=== PATIENT | female | born 1980 | race Caucasian/White ===

== ENCOUNTER 2024-08-17 22:39 | Emergency (ER) | payer SELFPAY ==
[~2024-08-17] VITALS: Ht 165.1 cm; Wt 70.0 kg
[2024-08-17 22:44] VITALS: O2SAT 99
[2024-08-17 23:34] LABS: BASOPHILS % 0.8 % (0.0-2.0); EOSINOPHILS % 1.3 % (0.0-5.0); HEMATOCRIT. 21.1 % (36.0-48.0); MEAN CORPUSCULAR HGB CONC 28.1 g/dL (31.0-37.0); MEAN CORPUSCULAR VOLUME 53.4 fL (81.0-99.0); MEAN PLATELET VOLUME 8.6 fl (7.4-10.4); MONOCYTES % 8.6 % (2.0-8.0); NEUTROPHILS % 68.3 % (40.0-76.0); PLATELET 376 x1000/uL (130-400); RED BLOOD CELL COUNT 3.94 mill/uL (4.2-5.4); RED CELL DISTRIBUTION WIDTH 21.3 % (11.6-14.6); WHITE BLOOD COUNT 6.1 x1000/uL (4.5-11.0)
[2024-08-17 23:36] LABS: PROTHROMBIN TIME 10.7 sec (9.6-11.0)
[2024-08-17 23:40] LABS: CHLORIDE 107 mEq/L (98-107); POTASSIUM 4.2 mEq/L (3.5-5.1); SODIUM 140 mEq/L (136-145)
[2024-08-17 23:41] LABS: CARBON DIOXIDE 25 mEq/L (21-32)
[2024-08-17 23:42] LABS: CALCIUM 8.6 mg/dL (8.7-10.4)
[2024-08-17 23:46] LABS: CREATININE 0.6 mg/dL (0.6-1.0)
[2024-08-17 23:47] LABS: GLUCOSE 102 mg/dL (70-105); UREA NITROGEN BLOOD 21 mg/dL (9-23)
[2024-08-18 00:09] LABS: DIFFERENTIAL COMMENT 1; HEMOGLOBIN. 5.9 g/dL (12.0-16.0)
[2024-08-18 00:10] LABS: ADD RBC MORPHOLOGY YES
[2024-08-18 00:11] LABS: HCG SCREEN NEGATIVE
[2024-08-18 00:16] LABS: TROPONIN I HIGH SENSITIVITY < 4 ng/L (3.0-34)
[2024-08-18 06:18] LABS: CLARITY URINE TURBID (CLEAR); COLOR URINE DARK YELLOW (YELLOW); GLUCOSE URINE NEGATIVE (NEGATIVE); KETONES URINE TRACE (NEGATIVE); LEUKOCYTE ESTERASE URINE 3+ (NEGATIVE); NITRITE URINE NEGATIVE (NEGATIVE); OCCULT BLOOD URINE 3+ (NEGATIVE); PH URINE 5.5 (4.5-8.0); PROTEIN URINE 2+ (NEGATIVE); SPECIFIC GRAVITY URINE 1.043 (1.005-1.030)
[2024-08-18 06:45] LABS: BACTERIA URINE 4+; CALCIUM OXALATE CRYSTALS URINE 1+ /lpf; RBC URINE 15-25 /hpf (0-2); SQUAMOUS EPITHELIAL CELL URINE 2+ /lpf (RARE/1+); WBC URINE TNTC /hpf (0-2); YEAST URINE NONE SEEN
[2024-08-18 07:45] LABS: PLATELET ESTIMATE NORMAL
[2024-08-18 07:46] LABS: HYPOCHROMASIA 2+; MICROCYTOSIS 2+
[2024-08-18 08:06] LABS: HEMATOCRIT 25.6 % (36.0-48.0); HEMOGLOBIN 7.6 g/dL (12.0-16.0); MEAN CORPUSCULAR HEMOGLOBIN 17.4 pg (28.0-32.0); MEAN CORPUSCULAR HGB CONC 29.7 g/dL (31.0-37.0); MEAN CORPUSCULAR VOLUME 58.7 fL (81.0-99.0); PLATELET 368 x1000/uL (130-400); RED BLOOD CELL COUNT 4.37 mill/uL (4.2-5.4); RED CELL DISTRIBUTION WIDTH 21.8 % (11.6-14.6); WHITE BLOOD COUNT 6.4 x1000/uL (4.5-11.0)
[2024-08-18 09:00] VITALS: BP 111/59; PULSE 72; RESP 17; TEMP 36.6; O2SAT 99
[2024-08-18] MEDS ORDERED: SODIUM CHLORIDE 0.9% 1,000 ML IV SCH (09:00)
[2024-08-18] MEDS ORDERED: CLONIDINE 0.1MG TABLET PO PRN (09:00)
[2024-08-18] MEDS ORDERED: ONDANSETRON HCL 4MG/2ML INJ IV PRN (09:00)
[2024-08-18] MEDS ORDERED: ACETAMINOPHEN 325MG TABLET PO PRN (09:00)
[2024-08-18] MEDS ORDERED: HYDROCODONE/ACETAMINOPHEN 5/325MG TABLET PO PRN (09:00)
[2024-08-18] MEDS ORDERED: MORPHINE SULFATE 2 MG/ML INJ (NOT FOR IM USE) IV PRN (09:00)
[2024-08-18] MEDS ORDERED: ZOLPIDEM TARTRATE 5MG TABLET PO PRN (09:00)
[2024-08-18] MEDS ORDERED: PANTOPRAZOLE SODIUM 40 MG/VIAL IV SCH (10:00)
[2024-08-18 13:54] LABS: *AMPHETAMINES SCREEN URINE NEGATIVE (NEGATIVE); *BARBITURATES SCREEN URINE NEGATIVE (NEGATIVE); *BENZODIAZEPINES SCREEN URINE NEGATIVE (NEGATIVE); *COCAINE SCREEN URINE NEGATIVE (NEGATIVE); CANNABINOID URINE SCREEN NEGATIVE (NEGATIVE); ECSTASY MDMA SCREEN URINE NEGATIVE (NEGATIVE); METHADONE URINE SCREEN NEGATIVE (NEGATIVE); OPIATES URINE SCREEN NEGATIVE (NEGATIVE); PHENCYCLIDINE URINE SCREEN NEGATIVE (NEGATIVE)
== END 2024-08-18 09:25 | disposition left against medical advice (07) ==
LOC: ER 22:39 → EDBEDREQTM 08-18 01:47 → EDBEDREQ 08-18 01:47 → CANBEDREQ 08-18 09:10 → ER 08-18 09:25
DX: D64.9 Anemia, unspecified (principal); R55 Syncope and collapse; E87.8 Other disorders of electrolyte and fluid balance, not elsewhere classified; Z79.899 Other long term (current) drug therapy
CPT/HCPCS: 36415; 71045; 80048; 80305; 81003; 83880; 84484; 84703; 85025; 85027; 86850; 86900; 86920; 87077; 87186; 93005; 99291; P9016